=== PATIENT | female | born 1965 | race Caucasian/White ===

== ENCOUNTER → 2017-07-06 | Outpatient (CLI) | payer BC ==
[~2017-07-06] MED LIST: ASPEC325 PO; CNT PO
--- NOTE | 2017-07-06 15:19 | MAMMOGRAPHY REPORT ---
BILATERAL DIGITAL SCREENING MAMMOGRAM TOMOSYNTHESIS WITH CAD: 07/06/2017 CLINICAL HISTORY: Routine screening. Patient has no complaints. TECHNIQUE: Breast tomosynthesis in addition to standard 2D mammography was performed. Current study was also evaluated with a Computer Aided Detection (CAD) system. COMPARISON: Comparison is made to exams dated: 06/30/2016 mammogram, 06/26/2015 mammogram, 4 mammogram, 06/20/2013 mammogram, 05/30/2013 mammogram - [facility], and 09/04/2006. BREAST COMPOSITION: The tissue of both breasts is heterogeneously dense, which may obscure small mas ses. FINDINGS: There is a possible area of architectural distortion in the medial posterior right breast, only seen on the CC view (4.4 cm distal to the nipple on tomosynthesis slice 19/43), for which addit ional spot compression tomosynthesis views and possible ultrasound are recommended. There are stable punctate microcalcifications in both breasts. No other suspicious mass, architectur al distortion or cluster of microcalcifications is seen. IMPRESSION: ACR BI-RADS CATEGORY 0: INCOMPLETE EVALUATION: NEED ADDITIONAL IMAGING EVALUATION The possible area of architectural distortion in the medial right breast needs additional evaluation. The patient will be called to schedule an appointment. Approximately 10% of breast cancers are not detected with mammography. A negative mammographic report should not delay biopsy if a clinically suggestive mass is present. Alona Sawyer M.D. ay/:07/06/2017 08:37:26 Certified Phlebotomy Technician: Olena COOLEY(James)(Kaylee)(BD), [facility] letter sent: Addl Imaging 0 BI-RADS Code: ACR BI-RADS Category 0: Incomplete Evaluation: Need Additional Imaging Evaluation
== END | disposition home or self-care (01) ==
LOC: C.MAMM 08:06
PROVIDERS: ATTEND Family Medicine
DX: Z12.31 Encounter for screening mammogram for malignant neoplasm of breast (principal); R92.8 Other abnormal and inconclusive findings on diagnostic imaging of breast

== ENCOUNTER → 2017-07-13 | Outpatient (CLI) | payer BC ==
--- NOTE | 2017-07-14 07:48 | MAMMOGRAPHY REPORT ---
UNILATERAL RIGHT DIGITAL DIAGNOSTIC MAMMOGRAM TOMOSYNTHESIS AND TARGETED RIGHT ULTRASOUND: 07/13/2017 CLINICAL HISTORY: 52-year-old woman called back from screening mammography for a possible small subtl e area of architectural distortion in the medial right breast only seen on the CC view. No family hi story of breast cancer. TECHNIQUE: Spot compression CC and MLO 2-D and tomosynthesis images of the right breast were obtained . COMPARISON: Comparison is made to exams dated: 07/06/2017 mammogram, 06/30/2016 mammogram, 06/26/2015 mammogram, 06/22/2014 mammogram, 06/20/2013 mammogram, and 05/30/2013 mammogram - [facility]. BREAST COMPOSITION: The tissue of the right breast is extremely dense, which lowers the sensitivity of mammography. FINDINGS: There is complete effacement of the questionable area of architectural distortion in the me dial right breast on the spot compression right CC tomosynthesis images. No persistent area of archi tectural distortion is seen on either the CC or MLO spot compression tomosynthesis images. No suspic ious mass, asymmetry or suspicious calcifications. Targeted ultrasound was performed throughout the medial right breast to assess for the area of effaci ng asymmetry. Sonographically normal fibroglandular tissue is seen without a suspicious solid or cys tic mass or area of distortion seen in real-time scanning. IMPRESSION: ACR BI-RADS CATEGORY 2: BENIGN, TARGETED ULTRASOUND ACR BI-RADS CATEGORY 2: BENIGN Effacement of the questionable area of architectural distortion in the medial right breast with suppl emental spot compression tomosynthesis views, and no suspicious sonographic correlate identified. Th is most likely represented normal overlapping fibroglandular tissue. There is no mammographic or tar geted sonographic evidence of malignancy in the right breast. These results and recommendations were discussed with the patient and her at the time of the exam. Approximately 10% of breast cancers are not detected with mammography. A negative mammographic report should not delay biopsy if a clinically suggestive mass is present. Alona Sawyer M.D. ay/:07/13/2017 12:13:22 Conservation Educator: Bridgette RAWLS)(Kaylee), [facility] letter sent: Normal 1/2 BI-RADS Code: ACR BI-RADS Category 2: Benign Ultrasound BI-RADS: ACR BI-RADS Category 2: Benign
== END | disposition home or self-care (01) ==
LOC: C.MAMM 08:57
PROVIDERS: ATTEND Family Medicine
DX: R92.8 Other abnormal and inconclusive findings on diagnostic imaging of breast (principal); N64.89 Other specified disorders of breast

== ENCOUNTER 2022-02-02 07:16 | Inpatient (IN) ==
[2022-02-02] MEDS ORDERED: levETIRAcetam 1,000 MG in 0.9 % SODIUM CHLORIDE 100 ML IV STA (07:37)
[2022-02-02] MEDS ORDERED: SODIUM CHLORIDE 0.9% 1000ML 1,000 ML IV SCH (07:45)
--- NOTE | 2022-02-02 07:54 | Emergency Department Note ---
History of Present Illness General Chief complaint: Seizure Source: patient Mode of arrival: EMS Limitations: altered mental status History of Present Illness This patient is a 56-year-old female who presents to the emergency department via EMS for evaluation of a seizure. Patient postictal on arrival and unable to provide much history. states that she began feeling slightly ill 2 days ago, stating that she felt like there was a knot in her throat. Yesterday, she had some vomiting and a headache. He states that they assumed she was coming down with a virus. This morning, he watched her go to the bathroom and when she got up, she collapsed and had seizure-like activity which lasted approximately 10 minutes. Patient states that he was on the phone with 911 while this occurred. On EMS arrival, the seizure-like activity had stopped but she was confused. She has no history of seizures. He states otherwise she has not recently been ill. Patient was reassessed later in the stay and was able to provide some additional history. She denies any alcohol, drug or diuretic use. Home Medications Medication Instructions Recorded Confirmed Type Multivitamins/Minerals (Centrum *) 1 tab PO DAILY #0 07/27/11 02/02/22 History losartan 50 mg-hydrochlorothiazide 1 tab PO DAILY 02/02/22 02/02/22 History 12.5 mg tablet Allergies Allergy/AdvReac Type Severity Reaction Status Date / Time No Known Allergies Allergy Unverified 07/27/11 06:10 Past Med/Surg History Medical History HTN (hypertension), benign Surgical History No history of previous surgery Family History Father Diabetes Cancer Bladder CA Sister Cancer Pancreatic CA Sister Cancer Lung CA Social History Smoking Status: Never smoker Hx Alcohol Use: Yes Alcohol type: beer Alcohol Intake Frequency: 2-4 x/Month Alcohol Intake Frequency Comment: 2 beers Hx Substance Use: No Preferred Language: Arabic Communication Ability: Effective Etiologist Required: No Beliefs That Will Affect Care: None Current Living Situation: Spouse Current Living Situation Comment: no issues with ambulation, ADLs, falls, etc. Feels Safe at Home: Yes Assistive Devices: Glasses Review of Systems A total of 10 systems reviewed and were otherwise negative Physical Exam Vital Signs Vital Signs - 24 hr 02/02/22 08:30 02/02/22 09:05 02/02/22 09:30 Pulse Rate 75 77 69 Pulse Rate from SpO2 Sensor 75 77 69 Respiratory Rate 29 H 22 19 Blood Pressure 112/69 122/70 107/66 Blood Pressure Mean 83 87 79 Pulse Oximetry 95 96 95 02/02/22 10:00 Pulse Rate 72 Pulse Rate from SpO2 Sensor 73 Respiratory Rate 18 Blood Pressure 110/69 Blood Pressure Mean 82 Pulse Oximetry 96 VITALS: Vitals are noted on the nurse's note and reviewed by myself. GENERAL: This is a 56-year-old, disoriented. SKIN: The skin was without rashes. EARS: External auditory canals clear, tympanic membranes pearly miles without erythema or effusion bilaterally. EYES: Pupils equal round and reactive to light and accommodation. Extraocular movements intact. NOSE: Patent, turbinates without inflammation or discharge. MOUTH: Mucous membranes slightly dry. NECK: Supple without nuchal rigidity. No lymphadenopathy. HEART: Regular rate and rhythm without murmurs gallops or rubs. LUNGS: Clear to auscultation bilaterally without wheezes, rales or rhonchi. ABDOMEN: Positive bowel sounds x 4. Soft, nontender to palpation. MUSCULOSKELETAL: Full range of motion throughout. Strength 5/5 throughout. NEURO: Patient is alert but disoriented. She does follow commands. Course Administered Medications Enoxaparin Sodium (Enoxaparin Inj 40 Mg/0.4 Ml Syr) 40 mg SQ Q24H [facility] Stop: 03/04/22 12:59 Last Admin: 02/03/22 14:38 Dose: Not Given Documented by: [id number] Admin: 02/02/22 12:58 Dose: 40 mg Documented by: [id number] Discontinued Medications Gadobutrol (Gadobutrol 30ml Vial) 6 ml IV ONCE ONE Stop: 02/03/22 10:13 Last Admin: 02/03/22 10:12 Dose: 6 ml Documented by: [id number] Levetiracetam 1,000 mg/ Sodium (Chloride) 100 mls @ 440 mls/hr IV NOW STA Stop: 02/02/22 07:50 Last Infusion: 02/02/22 08:21 Dose: 0 mls/hr Documented by: [id number] Admin: 02/02/22 08:07 Dose: 440 mls/hr Documented by: [id number] Sodium Chloride (Nss 1000ml) 1,000 mls @ 999 mls/hr IV .Q1H1M SEAMUS Stop: 02/02/22 08:45 Last Infusion: 02/02/22 08:49 Dose: 0 mls/hr Documented by: [id number] Admin: 02/02/22 07:48 Dose: 999 mls/hr Documented by: [id number] Parenteral Electrolytes (Normosol-R) 1,000 mls @ 80 mls/hr IV .[id number] SEAMUS Stop: 02/03/22 01:59 Last Infusion: 02/02/22 19:08 Dose: 0 mls/hr Documented by: [id number] Admin: 02/02/22 14:47 Dose: 80 mls/hr Documented by: [id number] Desmopressin Acetate 0.5 mcg/ (Sodium Chloride) 50.125 mls @ 100 mls/hr IV ONCE ONE Stop: 02/02/22 19:33 Last Admin: 02/02/22 20:47 Dose: Not Given Documented by: [id number] Desmopressin Acetate 2 mcg/ (Sodium Chloride) 50.5 mls @ 100 mls/hr IV ONCE ONE Stop: 02/02/22 20:00 Last Infusion: 02/02/22 20:09 Dose: 0 mls/hr Documented by: [id number] Admin: 02/02/22 19:32 Dose: 100 mls/hr Documented by: [id number] Dextrose (D5w) 500 mls @ 999 mls/hr IV .Q31M ONE Stop: 02/03/22 04:50 Last Infusion: 02/03/22 05:29 Dose: 0 mls/hr Documented by: [id number] Admin: 02/03/22 04:58 Dose: 999 mls/hr Documented by: [id number] Potassium Phosphate 9 mmol/ (Sodium Chloride) 253 mls @ 88 mls/hr IV ONE ONE Stop: 02/03/22 09:37 Last Infusion: 02/03/22 10:41 Dose: 0 mls/hr Documented by: [id number] Admin: 02/03/22 07:44 Dose: 88 mls/hr Documented by: [id number] Desmopressin Acetate 1 mcg/ (Sodium Chloride) 50.25 mls @ 100 mls/hr IV ONE ONE Stop: 02/03/22 09:30 Last Infusion: 02/03/22 11:06 Dose: 0 mls/hr Documented by: [id number] Admin: 02/03/22 10:25 Dose: 100 mls/hr Documented by: [id number] Potassium Chloride (Potassium Chloride Crtab 20 Meq Tabcr) 20 meq PO NOW STA Stop: 02/02/22 18:50 Last Admin: 02/02/22 19:32 Dose: 20 meq Documented by: [id number] Medical Decision Making Differential Diagnosis Epilepsy, infection, hypoglycemia, electrolyte abnormalities, cardiac sources, intracerebral event, trauma, toxicologic, neurologic, syncope, as well as other pathologies. Home Medications Current Medication List: was personally reviewed by me Laboratory Data Attestation: I reviewed the patient's lab results. Result diagrams: 02/03/22 02:52 02/03/22 02:52 Lab Results 02/02/22 02/02/22 02/02/22 Range/Units 07:28 07:28 07:28 WBC 4.97 (4.8-10.8) K/uL RBC 3.85 L (4.2-5.4) M/uL Hgb 12.0 (12.0-16.0) g/dL Hct 33.7 L (37-47) % MCV 87.5 (80-100) fL MCH 31.2 (25-34) pg MCHC 35.6 (32-36) g/dL RDW Std Deviation 38.0 (36.4-46.3) fL RDW Coeff of Yolande 11.9 (11.5-14.5) % Plt Count 209 (130-400) K/uL MPV 9.6 (7.4-10.4) fL Immature Gran % (Auto) 0.2 % Neut % (Auto) 65.4 % Lymph % (Auto) 14.5 % Barnwell % (Auto) 19.9 % Eos % (Auto) 0.0 % Baso % (Auto) 0.0 % Neut # (Auto) 3.25 (1.4-6.5) K/uL Lymph # (Auto) 0.72 L (1.2-3.4) K/uL Barnwell # (Auto) 0.99 H (0.11-0.59) K/uL Eos # (Auto) 0.00 (0-0.5) K/uL Baso # (Auto) 0.00 (0-0.2) K/uL Immature Gran # (Auto) 0.01 (0.00-0.02) K/uL Sodium 118 L* (136-145) mmol/L Potassium 3.5 (3.5-5.1) mmol/L Chloride 83 L (98-107) mmol/L Carbon Dioxide 19 L (21-32) mmol/L Anion Gap 16 H (3-11) BUN 10 (6-23) mg/dl Creatinine 0.77 (0.6-1.2) mg/dl Est Cr Clr Drug Dosing 66.5 ml/min Est GFR ( Amer) 100.0 ml/min Est GFR (Non-Af Amer) 86.3 ml/min BUN/Creatinine Ratio 13.0 (10-20) Glucose 173 H (70-99(Fasting)) mg/dl Osmolality (280-300) mOsm/kg Calcium 8.7 (8.5-10.1) mg/dl Magnesium 1.7 (1.7-2.4) mg/dl Total Bilirubin 0.5 (0.2-1.0) mg/dl AST 64 H (13-39) U/L ALT 38 (7-52) U/L Alkaline Phosphatase 72 (34-104) U/L Total Protein 7.0 (6.0-8.3) gm/dl Albumin 4.3 (3.4-5.0) gm/dl Globulin 2.7 (2.5-4.0) gm/dl Albumin/Globulin Ratio 1.6 (0.9-2) TSH (0.300-4.500) uIu/ml Salicylates (3.0-30) mg/dl Ethyl Alcohol mg/dL < 10.0 (<10.0) mg/dl SARS-CoV-2, RNA, NAAT (NEGATIVE) 02/02/22 02/02/22 02/02/22 Range/Units 07:28 07:28 07:28 WBC (4.8-10.8) K/uL RBC (4.2-5.4) M/uL Hgb (12.0-16.0) g/dL Hct (37-47) % MCV (80-100) fL MCH (25-34) pg MCHC (32-36) g/dL RDW Std Deviation (36.4-46.3) fL RDW Coeff of Yolande (11.5-14.5) % Plt Count (130-400) K/uL MPV (7.4-10.4) fL Immature Gran % (Auto) % Neut % (Auto) % Lymph % (Auto) % Barnwell % (Auto) % Eos % (Auto) % Baso % (Auto) % Neut # (Auto) (1.4-6.5) K/uL Lymph # (Auto) (1.2-3.4) K/uL Barnwell # (Auto) (0.11-0.59) K/uL Eos # (Auto) (0-0.5) K/uL Baso # (Auto) (0-0.2) K/uL Immature Gran # (Auto) (0.00-0.02) K/uL Sodium (136-145) mmol/L Potassium (3.5-5.1) mmol/L Chloride (98-107) mmol/L Carbon Dioxide (21-32) mmol/L Anion Gap (3-11) BUN (6-23) mg/dl Creatinine (0.6-1.2) mg/dl Est Cr Clr Drug Dosing ml/min Est GFR ( Amer) ml/min Est GFR (Non-Af Amer) ml/min BUN/Creatinine Ratio (10-20) Glucose (70-99(Fasting)) mg/dl Osmolality 247 L (280-300) mOsm/kg Calcium (8.5-10.1) mg/dl Magnesium (1.7-2.4) mg/dl Total Bilirubin (0.2-1.0) mg/dl AST (13-39) U/L ALT (7-52) U/L Alkaline Phosphatase (34-104) U/L Total Protein (6.0-8.3) gm/dl Albumin (3.4-5.0) gm/dl Globulin (2.5-4.0) gm/dl Albumin/Globulin Ratio (0.9-2) TSH 0.706 (0.300-4.500) uIu/ml Salicylates < 3.0 L (3.0-30) mg/dl Ethyl Alcohol mg/dL (<10.0) mg/dl SARS-CoV-2, RNA, NAAT (NEGATIVE) 02/02/22 Range/Units 08:30 WBC (4.8-10.8) K/uL RBC (4.2-5.4) M/uL Hgb (12.0-16.0) g/dL Hct (37-47) % MCV (80-100) fL MCH (25-34) pg MCHC (32-36) g/dL RDW Std Deviation (36.4-46.3) fL RDW Coeff of Yolande (11.5-14.5) % Plt Count (130-400) K/uL MPV (7.4-10.4) fL Immature Gran % (Auto) % Neut % (Auto) % Lymph % (Auto) % Barnwell % (Auto) % Eos % (Auto) % Baso % (Auto) % Neut # (Auto) (1.4-6.5) K/uL Lymph # (Auto) (1.2-3.4) K/uL Barnwell # (Auto) (0.11-0.59) K/uL Eos # (Auto) (0-0.5) K/uL Baso # (Auto) (0-0.2) K/uL Immature Gran # (Auto) (0.00-0.02) K/uL Sodium (136-145) mmol/L Potassium (3.5-5.1) mmol/L Chloride (98-107) mmol/L Carbon Dioxide (21-32) mmol/L Anion Gap (3-11) BUN (6-23) mg/dl Creatinine (0.6-1.2) mg/dl Est Cr Clr Drug Dosing ml/min Est GFR ( Amer) ml/min Est GFR (Non-Af Amer) ml/min BUN/Creatinine Ratio (10-20) Glucose (70-99(Fasting)) mg/dl Osmolality (280-300) mOsm/kg Calcium (8.5-10.1) mg/dl Magnesium (1.7-2.4) mg/dl Total Bilirubin (0.2-1.0) mg/dl AST (13-39) U/L ALT (7-52) U/L Alkaline Phosphatase (34-104) U/L Total Protein (6.0-8.3) gm/dl Albumin (3.4-5.0) gm/dl Globulin (2.5-4.0) gm/dl Albumin/Globulin Ratio (0.9-2) TSH (0.300-4.500) uIu/ml Salicylates (3.0-30) mg/dl Ethyl Alcohol mg/dL (<10.0) mg/dl SARS-CoV-2, RNA, NAAT POSITIVE A* (NEGATIVE) Imaging Data Attestation: I personally reviewed and interpreted this imaging study as follows: Radiologist's Impression: Head CT 02/02/22 07:39 CT OF THE HEAD WITHOUT CONTRAST CLINICAL HISTORY: Headache, vomiting, new onset seizure. COMPARISON STUDY: No previous studies for comparison. CT DOSE: 614.27 mGy.cm TECHNIQUE: Helical axial images of the head were obtained without IV contrast. Automated exposure control was utilized for the study. A dose lowering technique was utilized adhering to the principles of ALARA. FINDINGS: No acute intracranial hemorrhage, midline shift or mass effect is present. The ventricular system is unremarkable. The basal cisterns are patent. No extra-axial collections are present. There are no findings to suggest acute dural sinus thrombosis or acute territorial infarct. No significant calvarial abnormalities are present. Visualized portions of the sinuses and mastoid air cells are clear. Small right scalp contusion is noted. There is no calvarial fracture IMPRESSION: 1. No acute intracranial hemorrhage or mass effect. 2. Small right scalp contusion. No calvarial fracture. ACT 112: Negative or not required by law. Electronically signed by: Korey Brown M.D. 02/02/2022 8:11 AM Chest X-Ray 02/02/22 07:41 XR chest 1V portable CLINICAL HISTORY: seizure TECHNIQUE: Single frontal radiograph of the chest was obtained. Comparison: None available at the time of this dictation. FINDINGS: No lines and tubes are seen. The cardiomediastinal silhouette is normal. The lungs are clear. Incidental note is made of a density in the left perihilar region which may represent a vessel seen on end versus calcified granuloma. No evidence of pleural effusion or pneumothorax. IMPRESSION: No acute chest disease. ACT 112: Negative or not required by law. Electronically signed by: Steven Morales M.D. 02/02/2022 8:18 AM MDM Narrative Continuous youth nutritional monitor: Order was placed for continuous youth nutritional monitor. Patient was placed on the youth nutritional monitor. Patient was noted to be in normal sinus rhythm at an initial rate of 60 bpm. The patient is a 56-year-old female with no significant past medical history who presents today for evaluation of a seizure. Patient has no history of seizure. Labs revealed a hyponatremia with sodium of 118. She was found to be COVID-19 positive. Patient hydrated with 1 L of normal saline here. She had been given a loading dose of Keppra on initial arrival prior to further work-up. CT imaging of the head was unremarkable. Patient and informed of the findings. Additional studies were ordered. [facility] patient for further care. Impression & Plan Seizure, COVID-19, Hyponatremia Discharge Plan Visit Data Chief Complaint: Seizure ED Provider: Kenia Martinez ED Midlevel Provider: Johana Rivero Discharge Problem: Seizure, COVID-19, Hyponatremia Patient Disposition: Admitted As Inpatient Discharge Instructions Interventions: ED Discharge Assessment Last Done: 02/02/22 10:00
[2022-02-02 07:59] LABS: Hematocrit (blood only) 33.7 % (37-47); Immature Granulocytes # (auto) 0.01 K/uL (0.00-0.02); Immature Granulocytes % (auto) 0.2 %; Lymphocytes # (auto) 0.72 K/uL (1.2-3.4); Lymphocytes % (auto) 14.5 %; Mean Corpuscular Hemoglobin 31.2 pg (25-34); Mean Corpuscular Hgb Conc 35.6 g/dL (32-36); Mean Corpuscular Volume 87.5 fL (80-100); Mean Platelet Volume 9.6 fL (7.4-10.4); Monocytes # (auto) 0.99 K/uL (0.11-0.59); Monocytes % (auto) 19.9 %; Neutrophils # (auto) 3.25 K/uL (1.4-6.5); Neutrophils % (auto) 65.4 %; Platelet Count 209 K/uL (130-400); RDW Coefficient of Variation 11.9 % (11.5-14.5); Red Blood Count 3.85 M/uL (4.2-5.4); White Blood Count 4.97 K/uL (4.8-10.8)
[2022-02-02 08:09] LABS: Albumin Globulin Ratio 1.6 (0.9-2); Albumin Level 4.3 gm/dl (3.4-5.0); Bilirubin,Total 0.5 mg/dl (0.2-1.0); Calcium 8.7 mg/dl (8.5-10.1); Creatinine Clr Calc Pharmacy 66.5 ml/min; Est GFR (Non-African American) 86.3 ml/min; Globulin 2.7 gm/dl (2.5-4.0); Magnesium 1.7 mg/dl (1.7-2.4); Potassium 3.5 mmol/L (3.5-5.1)
--- NOTE | 2022-02-02 08:12 | CT Scan Report ---
CT OF THE HEAD WITHOUT CONTRAST CLINICAL HISTORY: Headache, vomiting, new onset seizure. COMPARISON STUDY: No previous studies for comparison. CT DOSE: 614.27 mGy.cm TECHNIQUE: Helical axial images of the head were obtained without IV contrast. Automated exposure con trol was utilized for the study. A dose lowering technique was utilized adhering to the principles o f ALARA. FINDINGS: No acute intracranial hemorrhage, midline shift or mass effect is present. The ventricular system is unremarkable. The basal cisterns are patent. No extra-axial collections are present. There are no findings to suggest acute dural sinus thrombosis or acute territorial infarct. No significant calvarial abnormalities are present. Visualized portions of the sinuses and mastoid air cells are ishmael ar. Small right scalp contusion is noted. There is no calvarial fracture IMPRESSION: 1. No acute intracranial hemorrhage or mass effect. 2. Small right scalp contusion. No calvarial fracture. ACT 112: Negative or not required by law. Electronically signed by: Korey Brown M.D. 02/02/2022 8:11 AM
--- NOTE | 2022-02-02 08:19 | XRay Report ---
XR chest 1V portable CLINICAL HISTORY: seizure TECHNIQUE: Single frontal radiograph of the chest was obtained. Comparison: None available at the time of this dictation. FINDINGS: No lines and tubes are seen. The cardiomediastinal silhouette is normal. The lungs are clear. Inciden hernan note is made of a density in the left perihilar region which may represent a vessel seen on end v ersus calcified granuloma. No evidence of pleural effusion or pneumothorax. IMPRESSION: No acute chest disease. ACT 112: Negative or not required by law. Electronically signed by: Steven Morales M.D. 02/02/2022 8:18 AM
--- NOTE | 2022-02-02 10:20 | History & Physical Report ---
Date of Service February 02, 2022 Assessment & Plan (1) Hyponatremia: Plan: Presented with headache followed by seizure. Almost certainly this is secondary to severe hyponatremia in the setting of nausea/vomiting/diarrhea and COVID-19. Seizure lasting 10 to 12 minutes as per 's estimate and was generalized, tonic-clonic in nature. Sodium 118 on arrival with serum osmolality 247. Urine studies were not obtained until after she received 1 L of normal saline-urine osmolality 462, urine sodium 44, however the urine sodium could be affected by the normal saline she received as well as the HCTZ that she is on chronically. She has 2+ ketones in the urine She is clearly hypovolemic with her history of nausea/vomiting/diarrhea and very poor p.o. intake, making this hypotonic hypovolemic hyponatremia. There could be some part SIADH however. High anion gap metabolic acidosis likely secondary to elevated lactate from seizure, however lactate was not checked in ER -Given severe hyponatremia with resultant seizure, admit to ICU for close monitoring -Appreciate repairer welding systems and equipment consultation -Will check BMP again now and determine whether or not to give hypertonic saline versus isotonic after that -Most likely acute hyponatremia-aim for goal of increasing sodium 8 mmol/liter in the first 24 hours -Hold home HCTZ/losartan, and avoid NSAIDs and other medications that can cause low sodium -Treat nausea with antiemetics as needed -Follow BMP every 4 hours -Plan to get MRI of the brain with contrast on Thursday to rule out intracranial lesion-discussed with patient and (2) Seizure: Plan: Most likely secondary to severe hyponatremia CT head negative Treating hyponatremia as above Check brain MRI with contrast once sodium improves-ordered for Thursday No need for EEG IV Ativan as needed No need for further Keppra (3) Nausea vomiting and diarrhea: Plan: Secondary to COVID-19 Antiemetics as needed Clear liquids diet for now (4) COVID-19: Plan: Diagnosed on 02/02. Symptoms for started on 01/31 She is twice vaccinated and boosted No evidence of hypoxia or pneumonia on chest x-ray-no indication for dexamethasone AST somewhat elevated at 64. Also with absolute lymphopenia Could give Remdesivir but will hold off given electrolyte abnormalities and dehydration Follow clinically Acetaminophen as needed for headache Place on airborne/contact isolation precautions (5) HTN (hypertension), benign: Plan: Blood pressures here are normal Hold home losartan/HCTZ due to hyponatremia Follow blood pressures Plan: DVT prophylaxis-Lovenox SQ, SCDs Disposition-admit to ICU Full code History of Present Illness Chief Complaint: Seizure Primary Care Provider: Olena Benson MD This patient is a 56-year-old female with a history of HTN who presents to the ER after her witnessed her having a generalized tonic-clonic seizure that lasted about 10-12 minutes this morning. Her provides the majority of the history as patient was still a bit post-ictal when I saw her. She started having a sore throat 2 days ago, then yesterday had a headache, chills, and was vomiting all day long, nonbloody. Had a couple episodes of diarrhea as well. She was able to drink small amounts of water but nothing stayed down all day. She got up to go to the bathroom this morning and after she urinated, her reports she stood up and then fell down to the ground and had shaking movements all over that lasted 10 to 12 minutes. He called for an ambulance and when they got there the seizing had stopped. In the ER, she was found to be positive for COVID-19, had a sodium of 118, metabolic acidosis with a serum bicarbonate of 19, AG of 16, serum osmoloality of 247. Her AST was mildly elevated at 64. CBC was unremarkable except for an absolute lymphopenia. She was afebrile and vitals were normal otherwise. A head CT noncontrast was negative except for a small right scalp contusion and a chest x-ray was normal. She was given 1 L normal saline and 1000 g of IV Keppra. She is twice vaccinated and boosted for COVID-19. She will be admitted to the ICU for severe hyponatremia with seizure, and COVID- 19. Allergies Allergy/AdvReac Type Severity Reaction Status Date / Time No Known Allergies Allergy Unverified 07/27/11 06:10 Home Medications Medication Instructions Recorded Confirmed Type Multivitamins/Minerals (Centrum *) 1 tab PO DAILY #0 07/27/11 02/02/22 History losartan 50 mg-hydrochlorothiazide 1 tab PO DAILY 02/02/22 02/02/22 History 12.5 mg tablet Past Med/Surg History Medical History HTN (hypertension), benign Surgical History No history of previous surgery Family History Father Diabetes Cancer Bladder CA Sister Cancer Pancreatic CA Sister Cancer Lung CA Social History Smoking Status: Never smoker Hx Alcohol Use: Yes Alcohol type: beer Alcohol Intake Frequency: 2-4 x/Month Alcohol Intake Frequency Comment: 2 beers Hx Substance Use: No Preferred Language: Beninese Communication Ability: Effective [place] Decorator Required: No Beliefs That Will Affect Care: None Current Living Situation: Spouse Current Living Situation Comment: no issues with ambulation, ADLs, falls, etc. Feels Safe at Home: Yes Assistive Devices: Glasses Review of Systems Review of Systems: All systems reviewed & are unremarkable except as noted in HPI & below Currently still with mild headache and nausea, no lightheadedness. No changes in vision. Chills but no documented fevers at home. No numbness or tingling, no focal weakness. No blood in stool or vomit Feels like she has to urinate but cannot get it out. No abdominal pains No chest pain or shortness of breath, no cough No skin rashes Physical Exam Constitutional: WD/WN, vitals as above Eyes: PERRL, conjunctivae normal, anicteric sclerae EOM intact bilaterally; no anisocoria and no nystagmus ENMT: external ear and nose normal, oropharynx normal Neck: trachea midline, no thyromegaly Respiratory: normal respiratory effort, lungs clear to auscultation Cardiovascular: RRR, no murmur, no edema Chest (Breasts): Chest: normal inspection of chest Gastrointestinal (Abdomen): normal bowel sounds, soft, nontender, no hepatosplenomegaly Musculoskeletal: Extremities: extremities normal to inspection; no cyanosis and no clubbing Skin: no rashes, warm and dry Neurologic: PERRL, EOMI, accommodation nl, no face palsy, no dysarthria CN's II-XI intact bilaterally, moves all extremities and awake; no focal motor deficits, no meningeal signs and not confused Speech / Cognition: no expressive aphasia Motor/Sensory: no sensory deficit Psychiatric: A+Ox3, euthymic affect Lymphatic: no lymphedema Results & Data Results & Data ([facility]) Vital Signs (Past 12 Hours) Vital Signs Temp Pulse Resp BP Pulse Ox 02/02/22 09:05 77 22 122/70 96 02/02/22 08:30 75 29 H 112/69 95 02/02/22 08:08 76 27 H 108/69 97 02/02/22 07:40 68 16 95/47 L 93 02/02/22 07:39 73 20 94 02/02/22 07:30 37.0 C 72 20 112/69 94 Laboratory Results Labs reviewed Diagnostic Findings Imaging reviewed ECG Additional Comments: ECG on 02/02/2022 at 7:25 AM with normal sinus rhythm, rate 74, voltage criteria for LVH, no ischemic changes Code Status & VTE Plan Code Status Full code VTE Prophylaxis Plan VTE Prophylaxis will be ordered: Yes PG Care Time/CCT Total # of Minutes Spent Total Time Spent with Patient: Total time spent is greater than 50% in coordination of care (as documented) at patient's floor/unit and/or counseling patient: Coding Level of Care Code 54466 Initial Inpt Care Lvl 3 Diagnoses HTN (hypertension), benign I10 COVID-19 U07.1 Nausea vomiting and diarrhea R11.2; R19.7 Hyponatremia E87.1 Seizure R56.9
[2022-02-02 10:51] LABS: Appearance Urine Clear (Clear); Bilirubin Urine Negative (Negative); Blood Urine Negative (Negative); Color Urine Yellow; Glucose Urine UA Trace (Negative); Ketones Urine 2+ (Negative); Leukocyte Esterase Urine Negative (Negative); Nitrite Urine Negative (Negative); Protein Urine Negative (Negative); Specific Gravity Urine 1.016 (1.000-1.030); Urobilinogen Urine Negative (Negative); pH Urine 6.5 (4.5-7.5)
[2022-02-02 11:20] LABS: Amphetamines+Metham, Urine Neg (Neg); Barbiturates, Urine Neg (Neg); Benzodiazepine, Urine Neg (Neg); Cocaine, Urine Neg (Neg); MDMA (Ecstacy), Urine Neg (Neg); Methadone, Urine Neg (Neg); Opiate, Urine Neg (Neg); Phencyclidine, Urine Neg (Neg)
--- NOTE | 2022-02-02 11:25 | Critical Care Consultation ---
Date of Consultation February 02, 2022 Assessment & Plan (1) Dehydration with hyponatremia: Reason Critically Ill: Seizure-like activity with acute hyponatremia secondary to diarrhea PLAN: Neuro: Seizure-like activity - Keppra started in ED, no indication to continue at this time Resp: COVID-19 -Largely asymptomatic, suspect diarrhea secondary to viral syndrome CV: Hypertension -Hold ARB/hydrochlorothiazide antihypertensive Fluids/Renal: Acute hyponatremia -Trend BMP every 6x4 with Normosol infusion at 80 mL/h ID: COVID-19 infection -Symptomatic treatment GI/Nutrition: Acute diarrhea: Suspect viral in etiology Heme: DVT prophylaxis: Lovenox 40 mg daily Endocrine: ICU hyperglycemia protocol Vascular access: Peripheral IVs Code Status: Full code Disposition: ICU (2) Seizure-like activity: (3) Acute diarrhea: (4) COVID-19: Supervising Physician Co-Signing Physician Notes I have personally spent 35 minutes of critical care time in the direct managemen t of this patient. This is a life/limb threatening event. This includes time spent evaluating patient, direct bedside care, chart review, placing orders, interpretation of diagnostic studies, discussion with consultants, patient, and/or family members regarding treatment decisions, as well as other required patient management activities. This time is exclusive of all separately billable procedures, and teaching time and separate from and in addition to any other critical care service time. History of Present Illness Reason for Consultation: Seizure: Symptomatic hypovolemic hyponatremia Requesting Physician: Shelby De La O Attending Physician: Shelby De La O History of Present Illness 56-year-old female who has had diarrhea and poor p.o. intake since approximately Thursday. Per report the patient had approximately 10 to 15 minutes of tonic- clonic shaking which the called EMS and this finished spontaneously when EMS arrived. In the emergency department she was given 1 L normal saline. She was incidentally found to be COVID-positive. She admitted to the ICU for trending of her sodiums and further management as well as isolation. Allergies Allergy/AdvReac Type Severity Reaction Status Date / Time No Known Allergies Allergy Unverified 07/27/11 06:10 Home Medications Medication Instructions Recorded Confirmed Type Multivitamins/Minerals (Centrum *) 1 tab PO DAILY #0 07/27/11 02/02/22 History losartan 50 mg-hydrochlorothiazide 1 tab PO DAILY 02/02/22 02/02/22 History 12.5 mg tablet Patient History Social History Smoking Status: Former smoker Hx Alcohol Use: Yes Alcohol type: beer Hx Substance Use: No Preferred Language: Thai Communication Ability: Effective Administrative Job Titles Required: No Beliefs That Will Affect Care: None Current Living Situation: Spouse Current Living Situation Comment: no issues with ambulation, ADLs, falls, etc. Feels Safe at Home: Yes Safety Concerns: Feels Safe At This Time Assistive Devices: Glasses Physical Exam Physical Exam: General: Alert. nontoxic. Skin: Warm, dry, Head: Atraumatic Ears, nose, mouth and throat: airway patent Cardiovascular: Normal peripheral perfusion Respiratory: no respiratory distress Gastrointestinal: Non distended Musculoskeletal: No deformity Results & Data Results & Data ([facility]) Vital Signs (Past 12 Hours) Vital Signs Temp Pulse Resp BP Pulse Ox 02/02/22 10:30 71 20 120/67 96 02/02/22 10:00 72 18 110/69 96 02/02/22 09:30 69 19 107/66 95 02/02/22 09:05 77 22 122/70 96 02/02/22 08:30 75 29 H 112/69 95 02/02/22 08:08 76 27 H 108/69 97 02/02/22 07:40 68 16 95/47 L 93 02/02/22 07:39 73 20 94 02/02/22 07:30 37.0 C 72 20 112/69 94 Critical Care Results & Data Vital Signs (Past 12 Hours) Vital Signs Temp Pulse Pulse Resp BP BP Pulse Ox 02/02/22 11:35 36.9 C 68 18 111/65 96 02/02/22 10:30 71 20 120/67 96 02/02/22 10:00 72 18 110/69 96 02/02/22 09:30 69 19 107/66 95 02/02/22 09:05 77 22 122/70 96 02/02/22 08:30 75 29 H 112/69 95 02/02/22 08:08 76 27 H 108/69 97 02/02/22 07:40 68 16 95/47 L 93 02/02/22 07:39 73 20 94 02/02/22 07:30 37.0 C 72 20 112/69 94 Lab & Micro Results (Past 24 Hours) RBC 3.85 M/uL (4.2-5.4) L 02/02/22 WBC 4.97 K/uL (4.8-10.8) 02/02/22 Hgb 12.0 g/dL (12.0-16.0) 02/02/22 Hct 33.7 % (37-47) L 02/02/22 MCV 87.5 fL (80-100) 02/02/22 MCH 31.2 pg (25-34) 02/02/22 MCHC 35.6 g/dL (32-36) 02/02/22 RDW Standard Deviation 38.0 fL (36.4-46.3) 02/02/22 RDW Coefficient of Variation 11.9 % (11.5-14.5) 02/02/22 Plt Count 209 K/uL (130-400) 02/02/22 MPV 9.6 fL (7.4-10.4) 02/02/22 Neutrophils (%) (Auto) 65.4 % 02/02/22 Lymphocytes (%) (Auto) 14.5 % 02/02/22 Monocytes # (Auto) 0.99 K/uL (0.11-0.59) H 02/02/22 Eosinophils # (Auto) 0.00 K/uL (0-0.5) 02/02/22 Immature Granulocyte % (Auto) 0.2 % 02/02/22 Neutrophils # (Auto) 3.25 K/uL (1.4-6.5) 02/02/22 Lymphocytes # (Auto) 0.72 K/uL (1.2-3.4) L 02/02/22 Monocytes # (Auto) 0.99 K/uL (0.11-0.59) H 02/02/22 Eosinophils # (Auto) 0.00 K/uL (0-0.5) 02/02/22 Basophils # (Auto) 0.00 K/uL (0-0.2) 02/02/22 Immature Granulocyte # (Auto) 0.01 K/uL (0.00-0.02) 02/02/22 Na 121 mmol/L (136-145) L 02/02/22 K 3.6 mmol/L (3.5-5.1) 02/02/22 Cl 88 mmol/L (98-107) L 02/02/22 CO2 26 mmol/L (21-32) 02/02/22 Anion Gap 7 (3-11) 02/02/22 BUN 9 mg/dl (6-23) 02/02/22 Creatinine 0.60 mg/dl (0.6-1.2) 02/02/22 Estimated GFR ( Amer) 118.1 ml/min 02/02/22 Estimated GFR (Non-Af Amer) 101.9 ml/min 02/02/22 BUN/Creatinine Ratio 15.0 (10-20) 02/02/22 Glu 102 mg/dl (70-99(Fasting)) H 02/02/22 Ca 8.1 mg/dl (8.5-10.1) L 02/02/22 Total Bilirubin 0.5 mg/dl (0.2-1.0) 02/02/22 AST 64 U/L (13-39) H 02/02/22 ALT 38 U/L (7-52) 02/02/22 Alkaline Phosphatase 72 U/L (34-104) 02/02/22 TP 7.0 gm/dl (6.0-8.3) 02/02/22 Albumin 4.3 gm/dl (3.4-5.0) 02/02/22 Globulin 2.7 gm/dl (2.5-4.0) 02/02/22 Albumin/Globulin Ratio 1.6 (0.9-2) 02/02/22 Mg 1.7 mg/dl (1.7-2.4) 02/02/22 07:28 02/02/22 Calcium Level 8.1 mg/dl (8.5-10.1) L 02/02/22 12:16 02/02/22 Diagnostic Findings (Past 24 Hours) Head CT 02/02/22 07:39 CT OF THE HEAD WITHOUT CONTRAST CLINICAL HISTORY: Headache, vomiting, new onset seizure. COMPARISON STUDY: No previous studies for comparison. CT DOSE: 614.27 mGy.cm TECHNIQUE: Helical axial images of the head were obtained without IV contrast. Automated exposure control was utilized for the study. A dose lowering technique was utilized adhering to the principles of ALARA. FINDINGS: No acute intracranial hemorrhage, midline shift or mass effect is present. The ventricular system is unremarkable. The basal cisterns are patent. No extra-axial collections are present. There are no findings to suggest acute dural sinus thrombosis or acute territorial infarct. No significant calvarial abnormalities are present. Visualized portions of the sinuses and mastoid air cells are clear. Small right scalp contusion is noted. There is no calvarial fracture IMPRESSION: 1. No acute intracranial hemorrhage or mass effect. 2. Small right scalp contusion. No calvarial fracture. ACT 112: Negative or not required by law. Electronically signed by: Korey Brown M.D. 02/02/2022 8:11 AM Chest X-Ray 02/02/22 07:41 XR chest 1V portable CLINICAL HISTORY: seizure TECHNIQUE: Single frontal radiograph of the chest was obtained. Comparison: None available at the time of this dictation. FINDINGS: No lines and tubes are seen. The cardiomediastinal silhouette is normal. The lungs are clear. Incidental note is made of a density in the left perihilar region which may represent a vessel seen on end versus calcified granuloma. No evidence of pleural effusion or pneumothorax. IMPRESSION: No acute chest disease. ACT 112: Negative or not required by law. Electronically signed by: Steven Morales M.D. 02/02/2022 8:18 AM I & O Totals 24 Hours 02/01/22 02/02/22 02/03/22 06:59 06:59 06:59 Intake Total 1100 / 1100 Balance 1100 / 1100 Cumulative 02/02/22 07:10 thru 02/02/22 11:35 Intake Total 1100 Balance 1100 RT Ventilator Mngmt (Last Documented) Ventilator Ordered Settings Respiratory Rate 18 02/02/22 11:35 Ventilator - PT Measurements Respiratory Rate 18 Coding Level of Care Code Critical Care 1st 30-74 mins Diagnoses Seizure-like activity R56.9 Dehydration with hyponatremia E86.0; E87.1 Acute diarrhea R19.7 COVID-19 U07.1
[2022-02-02] MEDS ORDERED: LORazepam 2 MG in SYRINGE 1 ML IV PRN (11:54)
[2022-02-02] MEDS ORDERED: ICU PROTOCOL FOR HYPERGLYCEMIA PRN (11:54)
[2022-02-02] MEDS ORDERED: ONDANSETRON INJ 2 MG/ML 2 ML VIAL IV PRN (11:54)
[2022-02-02] MEDS ORDERED: ACETAMINOPHEN 325 MG TAB PO PRN (11:54)
[2022-02-02 12:57] LABS: Calcium 8.1 mg/dl (8.5-10.1); Creatinine Clr Calc Pharmacy 85.7 ml/min; Est GFR (African American) 118.1 ml/min; Est GFR (Non-African American) 101.9 ml/min; Potassium 3.6 mmol/L (3.5-5.1)
[2022-02-02] MEDS: ENOXAPARIN INJ 40 MG/0.4 ML SYR SQ SCH (12:58)
[2022-02-02] MEDS ORDERED: NORMOSOL-R 1,000 ML IV SCH (13:30)
[2022-02-02 18:19] LABS: BUN Creatinine Ratio 12.9 (10-20); Calcium 8.4 mg/dl (8.5-10.1); Est GFR (African American) 116.8 ml/min; Est GFR (Non-African American) 100.8 ml/min; Potassium 3.4 mmol/L (3.5-5.1)
[2022-02-02] MEDS ORDERED: POTASSIUM CHLORIDE CRTAB 20 MEQ TABCR PO STA (18:49)
[2022-02-02] MEDS ORDERED: DESMOPRESSIN ACETATE 0.5 MCG in SODIUM CHLORIDE 0.9% 50 ML IV ONE (19:03)
[2022-02-02] MEDS ORDERED: DESMOPRESSIN ACETATE 2 MCG in SODIUM CHLORIDE 0.9% 50 ML IV ONE (19:30)
[2022-02-03 03:24] LABS: Albumin Level 3.7 gm/dl (3.4-5.0); BUN Creatinine Ratio 16.1 (10-20); Bilirubin,Total 0.3 mg/dl (0.2-1.0); C Reactive Protein 1.5 mg/dl (0-0.5); Calcium 8.3 mg/dl (8.5-10.1); Est GFR (African American) 116.8 ml/min; Est GFR (Non-African American) 100.8 ml/min; Phosphorus 1.9 mg/dl (2.5-4.9); Potassium 3.9 mmol/L (3.5-5.1)
[2022-02-03 03:25] LABS: Hematocrit (blood only) 31.3 % (37-47); Hemoglobin 11.1 g/dL (12.0-16.0); Lymphocytes # (auto) 1.06 K/uL (1.2-3.4); Lymphocytes % (auto) 28.5 %; Mean Corpuscular Hemoglobin 31.4 pg (25-34); Mean Corpuscular Hgb Conc 35.5 g/dL (32-36); Mean Corpuscular Volume 88.4 fL (80-100); Mean Platelet Volume 9.3 fL (7.4-10.4); Monocytes # (auto) 0.72 K/uL (0.11-0.59); Monocytes % (auto) 19.4 %; Neutrophils # (auto) 1.94 K/uL (1.4-6.5); Neutrophils % (auto) 52.1 %; Platelet Count 201 K/uL (130-400); RDW Standard Deviation 39.2 fL (36.4-46.3); Red Blood Count 3.54 M/uL (4.2-5.4); White Blood Count 3.72 K/uL (4.8-10.8)
[2022-02-03] MEDS ORDERED: DEXTROSE 5% 500 ML IV ONE (04:20)
[2022-02-03] MEDS ORDERED: POTASSIUM PHOS 3 MMOL/1 ML INFUSION IV STA (06:26)
[2022-02-03] MEDS ORDERED: POTASSIUM PHOSPHATE 9 MMOL in SODIUM CHLORIDE 0.9% 250 ML IV ONE (06:45)
--- NOTE | 2022-02-03 07:34 | Critical Care Progress Note ---
Date of Service February 03, 2022 Assessment & Plan (1) Seizure: (2) Hyponatremia: (3) COVID-19: Plan: Impression: 56-year-old female with COVID and likely associated viral gastroenteritis resulting in hypovolemic hyponatremia and associated questionable seizure activity. Her sodium is correcting appropriately and she is asymptomatic. Recommendations: 1. Hypovolemic hyponatremia: Appears correcting appropriately. Continue to monitor sodium levels. 2. Seizure-like activity: Unclear if this represents actual seizure or not. No persistent neurological findings. Imaging results unremarkable. No indication for antiepileptic agents currently. 3. COVID-19 infection: Suspect this was the etiology of the patient's GI complaints. She is devoid of any other symptoms. No indication for additional therapies or work-up at this point time. Continue to follow clinically. 4. Continue electrolyte replacement protocols. 5. The patient appears stable at this point time to dismiss from the intensive care unit. Will contact hospitalist to assume care patient and write transfer orders. Critical care services will sign off. Feel free to contact us if we can be of additional assistance. Admission and Anticipated Discharge Date Admission Date: February 02, 2022 Subjective Patient seen and examined. EMR reviewed. Discussed with overnight critical care CODY and bedside nurse. The patient is without complaints this morning. She reports that she is feeling well. She denies any neurological complaints. No headache double vision nausea or vomiting. Her appetite is returning. She is been out of bed to the commode and was steady on her feet. Review of Systems Review of Systems: All systems reviewed & are unremarkable except as noted in Subjective Physical Exam Constitutional: WD/WN, vitals as above Neck: trachea midline, no thyromegaly Respiratory: normal respiratory effort, lungs clear to auscultation Cardiovascular: RRR, no murmur, no edema Gastrointestinal (Abdomen): normal bowel sounds, soft, nontender, no hepatosplenomegaly Musculoskeletal: Extremities: extremities normal to inspection Skin: no rashes, warm and dry Neurologic: Nonfocal exam Lymphatic: no cervical lymphadenopathy Results & Data Results & Data ([facility]) Vital Signs (Past 12 Hours) Vital Signs Temp Pulse Resp BP Pulse Ox 02/03/22 06:55 56 L 16 103/57 L 96 02/03/22 06:25 56 L 14 100/61 95 02/03/22 05:55 58 L 7 L 94/52 L 96 02/03/22 05:25 73 15 109/56 L 96 02/03/22 04:55 56 L 27 H 111/53 L 94 02/03/22 04:25 63 19 83/44 L 95 02/03/22 03:55 37.9 C H 68 9 L 100/48 L 96 02/03/22 03:25 60 9 L 98/49 L 96 02/03/22 02:55 66 16 103/56 L 96 02/03/22 02:25 73 15 112/61 96 02/03/22 01:55 66 14 106/59 L 96 02/03/22 01:25 59 L 16 87/55 L 96 02/03/22 00:55 55 L 20 104/53 L 98 02/03/22 00:25 63 7 L 94/48 L 96 02/03/22 00:00 58 L 02/02/22 23:55 58 L 9 L 89/48 L 96 02/02/22 23:25 57 L 0 L 119/60 95 02/02/22 22:55 63 0 L 111/67 96 02/02/22 22:25 77 17 111/63 97 02/02/22 21:55 60 16 119/66 96 02/02/22 21:25 62 22 99/67 L 96 02/02/22 20:55 63 14 110/66 98 02/02/22 20:25 64 17 101/56 L 100 02/02/22 19:55 36.8 C 63 13 98/59 L 99 Critical Care Results & Data Vital Signs (Past 12 Hours) Vital Signs Temp Pulse Resp BP Pulse Ox 02/03/22 06:55 56 L 16 103/57 L 96 02/03/22 06:25 56 L 14 100/61 95 02/03/22 05:55 58 L 7 L 94/52 L 96 02/03/22 05:25 73 15 109/56 L 96 02/03/22 04:55 56 L 27 H 111/53 L 94 02/03/22 04:25 63 19 83/44 L 95 02/03/22 03:55 37.9 C H 68 9 L 100/48 L 96 02/03/22 03:25 60 9 L 98/49 L 96 02/03/22 02:55 66 16 103/56 L 96 02/03/22 02:25 73 15 112/61 96 02/03/22 01:55 66 14 106/59 L 96 02/03/22 01:25 59 L 16 87/55 L 96 02/03/22 00:55 55 L 20 104/53 L 98 02/03/22 00:25 63 7 L 94/48 L 96 02/03/22 00:00 58 L 02/02/22 23:55 58 L 9 L 89/48 L 96 02/02/22 23:25 57 L 0 L 119/60 95 02/02/22 22:55 63 0 L 111/67 96 02/02/22 22:25 77 17 111/63 97 02/02/22 21:55 60 16 119/66 96 02/02/22 21:25 62 22 99/67 L 96 02/02/22 20:55 63 14 110/66 98 02/02/22 20:25 64 17 101/56 L 100 02/02/22 19:55 36.8 C 63 13 98/59 L 99 Lab & Micro Results (Past 24 Hours) RBC 3.54 M/uL (4.2-5.4) L 02/03/22 WBC 3.72 K/uL (4.8-10.8) L 02/03/22 Hgb 11.1 g/dL (12.0-16.0) L 02/03/22 Hct 31.3 % (37-47) L 02/03/22 MCV 88.4 fL (80-100) 02/03/22 MCH 31.4 pg (25-34) 02/03/22 MCHC 35.5 g/dL (32-36) 02/03/22 RDW Standard Deviation 39.2 fL (36.4-46.3) 02/03/22 RDW Coefficient of Variation 12.0 % (11.5-14.5) 02/03/22 Plt Count 201 K/uL (130-400) 02/03/22 MPV 9.3 fL (7.4-10.4) 02/03/22 Neutrophils (%) (Auto) 52.1 % 02/03/22 Lymphocytes (%) (Auto) 28.5 % 02/03/22 Monocytes # (Auto) 0.72 K/uL (0.11-0.59) H 02/03/22 Eosinophils # (Auto) 0.00 K/uL (0-0.5) 02/03/22 Immature Granulocyte % (Auto) 0.0 % 02/03/22 Neutrophils # (Auto) 1.94 K/uL (1.4-6.5) 02/03/22 Lymphocytes # (Auto) 1.06 K/uL (1.2-3.4) L 02/03/22 Monocytes # (Auto) 0.72 K/uL (0.11-0.59) H 02/03/22 Eosinophils # (Auto) 0.00 K/uL (0-0.5) 02/03/22 Basophils # (Auto) 0.00 K/uL (0-0.2) 02/03/22 Immature Granulocyte # (Auto) 0.00 K/uL (0.00-0.02) 02/03/22 Na 131 mmol/L (136-145) L 02/03/22 K 3.9 mmol/L (3.5-5.1) 02/03/22 Cl 98 mmol/L (98-107) 02/03/22 CO2 28 mmol/L (21-32) 02/03/22 Anion Gap 5 (3-11) 02/03/22 BUN 10 mg/dl (6-23) 02/03/22 Creatinine 0.62 mg/dl (0.6-1.2) 02/03/22 Estimated GFR ( Amer) 116.8 ml/min 02/03/22 Estimated GFR (Non-Af Amer) 100.8 ml/min 02/03/22 BUN/Creatinine Ratio 16.1 (10-20) 02/03/22 Glu 92 mg/dl (70-99(Fasting)) 02/03/22 Ca 8.3 mg/dl (8.5-10.1) L 02/03/22 Phosphorus Level 1.9 mg/dl (2.5-4.9) L 02/03/22 Total Bilirubin 0.3 mg/dl (0.2-1.0) 02/03/22 Direct Bilirubin 0.0 mg/dl (0-0.2) 02/03/22 AST 42 U/L (13-39) H 02/03/22 ALT 34 U/L (7-52) 02/03/22 Alkaline Phosphatase 54 U/L (34-104) 02/03/22 TP 6.0 gm/dl (6.0-8.3) 02/03/22 Albumin 3.7 gm/dl (3.4-5.0) 02/03/22 Mg 2.0 mg/dl (1.7-2.4) 02/03/22 02:52 02/03/22 Calcium Level 8.3 mg/dl (8.5-10.1) L 02/03/22 02:52 02/03/22 Diagnostic Findings (Past 24 Hours) Head CT 02/02/22 07:39 CT OF THE HEAD WITHOUT CONTRAST CLINICAL HISTORY: Headache, vomiting, new onset seizure. COMPARISON STUDY: No previous studies for comparison. CT DOSE: 614.27 mGy.cm TECHNIQUE: Helical axial images of the head were obtained without IV contrast. Automated exposure control was utilized for the study. A dose lowering technique was utilized adhering to the principles of ALARA. FINDINGS: No acute intracranial hemorrhage, midline shift or mass effect is present. The ventricular system is unremarkable. The basal cisterns are patent. No extra-axial collections are present. There are no findings to suggest acute dural sinus thrombosis or acute territorial infarct. No significant calvarial abnormalities are present. Visualized portions of the sinuses and mastoid air cells are clear. Small right scalp contusion is noted. There is no calvarial fracture IMPRESSION: 1. No acute intracranial hemorrhage or mass effect. 2. Small right scalp contusion. No calvarial fracture. ACT 112: Negative or not required by law. Electronically signed by: Korey Brown M.D. 02/02/2022 8:11 AM Chest X-Ray 02/02/22 07:41 XR chest 1V portable CLINICAL HISTORY: seizure TECHNIQUE: Single frontal radiograph of the chest was obtained. Comparison: None available at the time of this dictation. FINDINGS: No lines and tubes are seen. The cardiomediastinal silhouette is normal. The lungs are clear. Incidental note is made of a density in the left perihilar region which may represent a vessel seen on end versus calcified granuloma. No evidence of pleural effusion or pneumothorax. IMPRESSION: No acute chest disease. ACT 112: Negative or not required by law. Electronically signed by: Steven Morales M.D. 02/02/2022 8:18 AM I & O Totals 24 Hours 07/10/2202/03/22 02/04/22 06:59 06:59 06:59 Intake Total 1997. / 1997.5 Output Total 1600 / 1600 Balance 398.5 / 398.5 Cumulative 02/02/22 07:10 thru 02/03/22 06:00 Intake Total 1997. Output Total 1600 Balance 398.5 RT Ventilator Mngmt (Last Documented) Ventilator Ordered Settings Respiratory Rate 16 02/03/22 06:55 Ventilator - PT Measurements Respiratory Rate 16 Coding Level of Care Code 89878 Subseq Hosp Care Lvl 2 Diagnoses Seizure R56.9 Hyponatremia E87.1 COVID-19 U07.1
[2022-02-03] MEDS ORDERED: DESMOPRESSIN ACETATE 1 MCG in SODIUM CHLORIDE 0.9% 50 ML IV ONE (09:00)
[2022-02-03] MEDS ORDERED: GADOBUTROL 30ML VIAL IV ONE (10:12)
--- NOTE | 2022-02-03 11:20 | Magnetic Resonance Report ---
MR brain wo/w con HISTORY: 56 years-old Female seizure,severe hyponatremia acute seizure like activity. COVID Positive . COMPARISON: Head CT 02/02/2022 TECHNIQUE: Multiplanar multisequence MRI of the brain was obtained both with and without the use of 5 .5 cc Gadavist FINDINGS: Computer Assembler localizer images demonstrate no gross extracranial abnormality. There is no restricted diffusio n to suggest acute or subacute infarct. Unremarkable midline structures. No acute intracranial hemorr vin, midline shift, abnormal extra-axial collection, hydrocephalus or intracranial mass. No patholog ic blooming artifact on the T2 star series. There are a few nonspecific foci of T2/FLAIR prolongation within the subcortical white matter. The medial temporal lobes are within normal limits bilaterally. No evidence of mesial temporal sclerosis, cortical dysplasia or miles matter heterotopia. The study i s mildly motion degraded. There is no abnormal enhancement. The cerebral venous sinuses and major arterial flow voids appear patent. Skull, orbits and soft tissu es are unremarkable. Mastoid air cells and paranasal sinuses are generally clear. IMPRESSION: 1. No acute intracranial abnormality. 2. Normal appearance of the mesial temporal lobes. 3. No abnormal enhancement. ACT 112: Negative or not required by law. The above report was generated using voice recognition software. It may contain grammatical, syntax o r spelling errors. Electronically signed by: Augustus Camargo M.D. 02/03/2022 11:17 AM
[2022-02-03] MEDS: ENOXAPARIN INJ 40 MG/0.4 ML SYR SQ SCH (14:38)
--- NOTE | 2022-02-03 17:58 | Hospitalist Progress Note ---
Date of Service February 03, 2022 Assessment & Plan (1) Hyponatremia: Plan: Presented with headache followed by seizure. Almost certainly this is secondary to severe hyponatremia in the setting of nausea/vomiting/diarrhea and COVID-19. Seizure lasting 10 to 12 minutes as per 's estimate and was generalized, tonic-clonic in nature. Sodium 118 on arrival with serum osmolality 247. Urine studies were not obtained until after she received 1 L of normal saline-urine osmolality 462, urine sodium 44, however the urine sodium could be affected by the normal saline she received as well as the HCTZ that she is on chronically. She has 2+ ketones in the urine She is clearly hypovolemic with her history of nausea/vomiting/diarrhea and very poor p.o. intake, making this hypotonic hypovolemic hyponatremia. There could be some part SIADH however. High anion gap metabolic acidosis likely secondary to elevated lactate from seizure, however lactate was not checked in ER -Given severe hyponatremia with resultant seizure, admit to ICU for close monitoring -Appreciate orthodontic lab technician consultation -Will check BMP again now and determine whether or not to give hypertonic saline versus isotonic after that -Most likely acute hyponatremia-aim for goal of increasing sodium 8 mmol/liter in the first 24 hours -Hold home HCTZ/losartan, and avoid NSAIDs and other medications that can cause low sodium -Treat nausea with antiemetics as needed -Follow BMP every 4 hours -Plan to get MRI of the brain with contrast on Thursday to rule out intracranial lesion-discussed with patient and MRI of the brain was negative. Sodium improved to 131 on 02/03 primo monitor. Anticipate discharge on 02/04 (2) Seizure: Plan: Most likely secondary to severe hyponatremia CT head negative Treating hyponatremia as above Check brain MRI with contrast once sodium improves-ordered for Thursday No need for EEG IV Ativan as needed No need for further Keppra (3) Nausea vomiting and diarrhea: Plan: Secondary to COVID-19 Antiemetics as needed Clear liquids diet for now (4) COVID-19: Plan: Diagnosed on 02/02. Symptoms for started on 01/31 She is twice vaccinated and boosted No evidence of hypoxia or pneumonia on chest x-ray-no indication for dexamethasone AST somewhat elevated at 64. Also with absolute lymphopenia Could give Remdesivir but will hold off given electrolyte abnormalities and dehydration Follow clinically Acetaminophen as needed for headache Place on airborne/contact isolation precautions (5) HTN (hypertension), benign: Plan: Blood pressures here are normal Hold home losartan/HCTZ due to hyponatremia Follow blood pressures Plan: DVT prophylaxis-Lovenox SQ, SCDs Disposition-admit to ICU Full code Admission and Anticipated Discharge Date Admission Date: February 02, 2022 Subjective Patient reports feeling better. Currently havning no symptoms. No diarrhea. Review of Systems Review of Systems: All systems reviewed & are unremarkable except as noted in HPI & below Physical Exam Constitutional: WD/WN, vitals as above Eyes: PERRL, conjunctivae normal, anicteric sclerae EOM intact bilaterally; no anisocoria and no nystagmus ENMT: external ear and nose normal, oropharynx normal Neck: trachea midline, no thyromegaly Respiratory: normal respiratory effort, lungs clear to auscultation Cardiovascular: RRR, no murmur, no edema Chest (Breasts): Chest: normal inspection of chest Gastrointestinal (Abdomen): normal bowel sounds, soft, nontender, no hepatosplenomegaly Musculoskeletal: Extremities: extremities normal to inspection; no cyanosis and no clubbing Skin: no rashes, warm and dry Neurologic: PERRL, EOMI, accommodation nl, no face palsy, no dysarthria CN's II-XI intact bilaterally, moves all extremities and awake; no focal motor deficits, no meningeal signs and not confused Speech / Cognition: no expressive aphasia Motor/Sensory: no sensory deficit Psychiatric: A+Ox3, euthymic affect Lymphatic: no lymphedema Results & Data Results & Data ([facility]) Vital Signs (Past 12 Hours) Vital Signs Temp Pulse Pulse Resp BP BP Pulse Ox 02/03/22 16:00 36.9 C 54 L 18 160/79 H 98 02/03/22 14:15 45 L 02/03/22 12:55 51 L 02/03/22 12:50 36.9 C 61 18 115/70 97 02/03/22 12:00 58 L 16 134/76 97 02/03/22 09:25 57 L 12 121/80 96 02/03/22 09:00 68 12 126/71 98 02/03/22 08:11 36.9 C 02/03/22 08:00 57 L 02/03/22 07:25 56 L 17 118/71 95 02/03/22 06:55 56 L 16 103/57 L 96 02/03/22 06:25 56 L 14 100/61 95 PG Care Time/CCT Total # of Minutes Spent Total Time Spent with Patient: Total time spent is greater than 50% in coordination of care (as documented) at patient's floor/unit and/or counseling patient: Coding Level of Care Code 53580 Subseq Hosp Care Lvl 2 Diagnoses Hyponatremia E87.1 Seizure R56.9 Nausea vomiting and diarrhea R11.2; R19.7 COVID-19 U07.1 HTN (hypertension), benign I10
[2022-02-03 18:11] LABS: BUN Creatinine Ratio 12.1 (10-20); Calcium 8.7 mg/dl (8.5-10.1); Creatinine Clr Calc Pharmacy 88.7 ml/min; Est GFR (African American) 119.4 ml/min; Potassium 3.7 mmol/L (3.5-5.1)
--- NOTE | 2022-02-04 05:54 | Electrocardiogram Report ---
Test Reason : Blood Pressure : / mmHG Vent. Rate : 074 BPM Atrial Rate : 074 BPM P-R Int : 194 ms QRS Dur : 090 ms QT Int : 420 ms P-R-T Axes : 063 050 055 degrees QTc Int : 466 ms Poor data quality, interpretation may be adversely affected Normal sinus rhythm Possible Left atrial enlargement Left ventricular hypertrophy with repolarization abnormality Abnormal ECG No previous ECGs available Confirmed by Kevin Smith ([id number]) on 02/04/2022 5:54:45 AM Referred By: REFERRED SELF Confirmed By:Kevin Smith
[2022-02-04 06:59] LABS: Basophils # (auto) 0.01 K/uL (0-0.2); Basophils % (auto) 0.3 %; Eosinophils # (auto) 0.01 K/uL (0-0.5); Eosinophils % (auto) 0.3 %; Hematocrit (blood only) 34.9 % (37-47); Hemoglobin 12.2 g/dL (12.0-16.0); Lymphocytes # (auto) 1.23 K/uL (1.2-3.4); Lymphocytes % (auto) 35.9 %; Mean Corpuscular Hemoglobin 30.8 pg (25-34); Mean Corpuscular Volume 88.1 fL (80-100); Mean Platelet Volume 9.4 fL (7.4-10.4); Monocytes # (auto) 0.66 K/uL (0.11-0.59); Monocytes % (auto) 19.2 %; Neutrophils # (auto) 1.52 K/uL (1.4-6.5); Neutrophils % (auto) 44.3 %; Platelet Count 203 K/uL (130-400); RDW Standard Deviation 38.9 fL (36.4-46.3); Red Blood Count 3.96 M/uL (4.2-5.4); White Blood Count 3.43 K/uL (4.8-10.8)
[2022-02-04 07:23] LABS: BUN Creatinine Ratio 7.9 (10-20); Bilirubin,Total 0.4 mg/dl (0.2-1.0); Calcium 8.8 mg/dl (8.5-10.1); Creatinine Clr Calc Pharmacy 81.7 ml/min; Est GFR (African American) 116.2 ml/min; Est GFR (Non-African American) 100.3 ml/min; Magnesium 1.8 mg/dl (1.7-2.4); Phosphorus 2.5 mg/dl (2.5-4.9); Potassium 3.5 mmol/L (3.5-5.1); Total Protein 6.7 gm/dl (6.0-8.3)
[2022-02-04 13:36] LABS: Albumin Level 4.5 gm/dl (3.4-5.0); BUN Creatinine Ratio 9.2 (10-20); Calcium 9.7 mg/dl (8.5-10.1); Creatinine Clr Calc Pharmacy 79.1 ml/min; Est GFR (Non-African American) 99.2 ml/min; Phosphorus 2.7 mg/dl (2.5-4.9); Potassium 3.6 mmol/L (3.5-5.1)
[2022-02-04] MEDS: ENOXAPARIN INJ 40 MG/0.4 ML SYR SQ SCH (13:49)
[2022-02-04] MEDS ORDERED: SODIUM CHLORIDE 1 GM TABLET PO ONE (15:14)
--- NOTE | 2022-02-04 17:02 | Nephrology Consultation ---
Date of Consultation February 04, 2022 Assessment & Plan (1) Hyponatremia: Appears relatively euvolemic on exam. Solute intake is poor. Uosm consistent with polydipsia versus autocorrection. Oral NaCl 1 gram and oral KCl 40 mEq have been provided. Repeat serum sodium ordered. If sodium is not imp roving, free water restriction will need to be enforced. Document strict I/O's. (2) HTN (hypertension), benign: BP acceptable. Continue to avoid thiazide diuretics. Remains slightly intravascularly dry. No additional treatment required. Euvolemic. (3) COVID-19: Plan of care discussed with Dr. Weaver today. I requested at least an additional 24 hours of inpatient management. History of Present Illness Reason for Consultation: Hyponatremia Requesting Physician: Jace Weaver Attending Physician: Jace Weaver History of Present Illness Olena Medina is a 56 year-old female with hypertension who was admitted to [facility] on February 02 s/p witnessed episode of tonic-clonic seizure activity. Olena had experienced approximately 24-48 hours of nausea, decreased appetite, and diarrhea prior to admission. Olena tested COVID + on admission. She denies sick contacts. Home medications included losartan-HCTZ. Serum sodium on admission was 118 mmol/L. Olena was diagnosed with tonic clonic seizure attributed to acute hyponatremia. She was found to be volume depleted on admission. Isotonic IVF provided. Serum sodium increased to 127 mmol/L following IVF replacement. Sodium was 131 mmol/L on hospital day #2. Urine osmolality on admission 462. Serum creatinine remains normal. Diarrhea persists. Olena reports that loose stools started to increase again this morning. PO intake has been reduced. She is tolerating fluids. Urine osmolality is now 79. TSH 0.7. No prior history of dysnatremia. No fluid retention or edema. Allergies Allergy/AdvReac Type Severity Reaction Status Date / Time No Known Allergies Allergy Unverified 07/27/11 06:10 Home Medications Medication Instructions Recorded Confirmed Type Multivitamins/Minerals (Centrum *) 1 tab PO DAILY #0 07/27/11 02/02/22 History losartan 50 mg-hydrochlorothiazide 1 tab PO DAILY 02/02/22 02/02/22 History 12.5 mg tablet Patient History Medical History HTN (hypertension), benign Surgical History No history of previous surgery Family History Father Diabetes Cancer Bladder CA Sister Cancer Pancreatic CA Sister Cancer Lung CA Social History Smoking Status: Never smoker Hx Alcohol Use: Yes Alcohol type: beer Alcohol Intake Frequency: 2-4 x/Month Alcohol Intake Frequency Comment: 2 beers Hx Substance Use: No Preferred Language: Ecuadorean Communication Ability: Effective Electronic Tester Required: No Beliefs That Will Affect Care: None Current Living Situation: Spouse Current Living Situation Comment: no issues with ambulation, ADLs, falls, etc. Feels Safe at Home: Yes Assistive Devices: None Review of Systems Review of Systems: All systems reviewed & are unremarkable except as noted in HPI & below Physical Exam Constitutional: well developed; no acute distress Eyes: no scleral abnormality and no corneal abnormality ENMT: Mouth: no oral mucosal abnormality and oral mucous membranes not dry Neck: normal visual inspection and trachea midline Respiratory: normal respiratory effort Auscultation: lungs clear to auscultation bilaterally Cardiovascular: Rate/Rhythm: regular rate Heart Sounds: normal S1 and normal S2 Extremities: no edema Musculoskeletal: Extremities: no cyanosis and no clubbing Skin: normal turgor; no lesions Neurologic: Motor/Sensory: no tremor and no asterixis Psychiatric: Orientation: alert and oriented x 3 Results & Data ([place]) Vital Signs (Past 12 Hours) Vital Signs Temp Pulse Pulse Resp BP Pulse Ox 02/04/22 16:26 36.7 C 80 16 150/87 H 98 02/04/22 15:08 107 H 02/04/22 11:58 36.6 C 65 18 143/82 H 97 02/04/22 07:54 36.6 C 70 16 128/77 98 02/04/22 06:42 36.8 C 69 18 135/77 95 Laboratory Results Laboratory Results - last 24 hr 02/03/22 02/04/22 02/04/22 17:27 06:31 06:31 WBC 3.43 L RBC 3.96 L Hgb 12.2 Hct 34.9 L MCV 88.1 MCH 30.8 MCHC 35.0 RDW Std Deviation 38.9 RDW Coeff of Yolande 12.0 Plt Count 203 MPV 9.4 Immature Gran % (Auto) 0.0 Neut % (Auto) 44.3 Lymph % (Auto) 35.9 [place] % (Auto) 19.2 Eos % (Auto) 0.3 Baso % (Auto) 0.3 Neut # (Auto) 1.52 Lymph # (Auto) 1.23 [place] # (Auto) 0.66 H Eos # (Auto) 0.01 Baso # (Auto) 0.01 Immature Gran # (Auto) 0.00 Sodium 124 L 125 L Potassium 3.7 3.5 Chloride 90 L 90 L Carbon Dioxide 27 28 Anion Gap 7 7 BUN 7 5 L Creatinine 0.58 L 0.63 Est Cr Clr Drug Dosing 88.7 81.7 Est GFR ( Amer) 119.4 116.2 Est GFR (Non-Af Amer) 103.0 100.3 BUN/Creatinine Ratio 12.1 7.9 L Glucose 93 94 Calcium 8.7 8.8 Phosphorus 2.5 Magnesium 1.8 Total Bilirubin 0.4 Direct Bilirubin 0.0 AST 70 H ALT 40 Alkaline Phosphatase 58 Total Protein 6.7 Albumin 4.0 Urine Osmolality Ur Random Potassium 02/04/22 02/04/22 02/04/22 11:45 11:45 12:51 WBC RBC Hgb Hct MCV MCH MCHC RDW Std Deviation RDW Coeff of Yolande Plt Count MPV Immature Gran % (Auto) Neut % (Auto) Lymph % (Auto) [place] % (Auto) Eos % (Auto) Baso % (Auto) Neut # (Auto) Lymph # (Auto) [place] # (Auto) Eos # (Auto) Baso # (Auto) Immature Gran # (Auto) Sodium 125 L Potassium 3.6 Chloride 90 L Carbon Dioxide 27 Anion Gap 8 BUN 6 Creatinine 0.65 Est Cr Clr Drug Dosing 79.1 Est GFR ( Amer) 115.0 Est GFR (Non-Af Amer) 99.2 BUN/Creatinine Ratio 9.2 L Glucose 168 H Calcium 9.7 Phosphorus 2.7 Magnesium Total Bilirubin Direct Bilirubin AST ALT Alkaline Phosphatase Total Protein Albumin 4.5 Urine Osmolality 79 L Ur Random Potassium 5.6 PG Care Time/CCT Total # of Minutes Spent Total Time Spent with Patient: Total time spent is greater than 50% in coordination of care (as documented) at patient's floor/unit and/or counseling patient: Coding Level of Care Code 41234 Inpt Consult Level 4 Diagnoses Hyponatremia E87.1 HTN (hypertension), benign I10 COVID-19 U07.1
[2022-02-04] MEDS ORDERED: POTASSIUM CHLORIDE CRTAB 20 MEQ TABCR PO STA (17:08)
--- NOTE | 2022-02-04 18:52 | Hospitalist Progress Note ---
Date of Service February 04, 2022 Assessment & Plan (1) Hyponatremia: Plan: Presented with headache followed by seizure. Almost certainly this is secondary to severe hyponatremia in the setting of nausea/vomiting/diarrhea and COVID-19. Seizure lasting 10 to 12 minutes as per 's estimate and was generalized, tonic-clonic in nature. Sodium 118 on arrival with serum osmolality 247. Urine studies were not obtained until after she received 1 L of normal saline-urine osmolality 462, urine sodium 44, however the urine sodium could be affected by the normal saline she received as well as the HCTZ that she is on chronically. She has 2+ ketones in the urine She is clearly hypovolemic with her history of nausea/vomiting/diarrhea and very poor p.o. intake, making this hypotonic hypovolemic hyponatremia. There could be some part SIADH however. High anion gap metabolic acidosis likely secondary to elevated lactate from seizure, however lactate was not checked in ER -Given severe hyponatremia with resultant seizure, admit to ICU for close monitoring -Appreciate punch press setter consultation -Will check BMP again now and determine whether or not to give hypertonic saline versus isotonic after that -Most likely acute hyponatremia-aim for goal of increasing sodium 8 mmol/liter in the first 24 hours -Hold home HCTZ/losartan, and avoid NSAIDs and other medications that can cause low sodium -Treat nausea with antiemetics as needed -Follow BMP every 4 hours -Plan to get MRI of the brain with contrast on Thursday to rule out intracranial lesion-discussed with patient and MRI of the brain was negative. Sodium improved to 131 on 02/03 will monitor. Sodium decreased to 125 but still higher than when she came in. Patient follows with [facility]. Will check her sodium level as an outpatient to assess if this was low. will repeat level in AM. patient received first dose of sodium tablets 1 gr on 02/04 (2) Seizure: Plan: Most likely secondary to severe hyponatremia CT head negative Treating hyponatremia as above Check brain MRI with contrast once sodium improves-ordered for Thursday No need for EEG IV Ativan as needed No need for further Keppra (3) Nausea vomiting and diarrhea: Plan: Secondary to COVID-19 Antiemetics as needed Clear liquids diet for now (4) COVID-19: Plan: Diagnosed on 02/02. Symptoms for started on 01/31 She is twice vaccinated and boosted No evidence of hypoxia or pneumonia on chest x-ray-no indication for dexamethasone AST somewhat elevated at 64. Also with absolute lymphopenia Could give Remdesivir but will hold off given electrolyte abnormalities and dehydration Follow clinically Acetaminophen as needed for headache Place on airborne/contact isolation precautions (5) HTN (hypertension), benign: Plan: Blood pressures here are normal Hold home losartan/HCTZ due to hyponatremia Follow blood pressures Plan: DVT prophylaxis-Lovenox SQ, SCDs Disposition-admit to ICU Full code Admission and Anticipated Discharge Date Admission Date: February 02, 2022 Subjective 56 yo female reports feeling well. She has no new complaints. Review of Systems Review of Systems: All systems reviewed & are unremarkable except as noted in HPI & below Physical Exam Constitutional: WD/WN, vitals as above Eyes: PERRL, conjunctivae normal, anicteric sclerae EOM intact bilaterally; no anisocoria and no nystagmus ENMT: external ear and nose normal, oropharynx normal Neck: trachea midline, no thyromegaly Respiratory: normal respiratory effort, lungs clear to auscultation Cardiovascular: RRR, no murmur, no edema Chest (Breasts): Chest: normal inspection of chest Gastrointestinal (Abdomen): normal bowel sounds, soft, nontender, no hepatosplenomegaly Musculoskeletal: Extremities: extremities normal to inspection; no cyanosis and no clubbing Skin: no rashes, warm and dry Neurologic: PERRL, EOMI, accommodation nl, no face palsy, no dysarthria CN's II-XI intact bilaterally, moves all extremities and awake; no focal motor deficits, no meningeal signs and not confused Speech / Cognition: no expressive aphasia Motor/Sensory: no sensory deficit Psychiatric: A+Ox3, euthymic affect Lymphatic: no lymphedema Results & Data Results & Data ([facility]) Vital Signs (Past 12 Hours) Vital Signs Temp Pulse Pulse Resp BP Pulse Ox 02/04/22 16:26 36.7 C 80 16 150/87 H 98 02/04/22 15:08 107 H 02/04/22 11:58 36.6 C 65 18 143/82 H 97 02/04/22 07:54 36.6 C 70 16 128/77 98 PG Care Time/CCT Total # of Minutes Spent Total Time Spent with Patient: Total time spent is greater than 50% in coordination of care (as documented) at patient's floor/unit and/or counseling patient: Coding Level of Care Code 06562 Subseq Hosp Care Lvl 2 Diagnoses Hyponatremia E87.1 Seizure R56.9 Nausea vomiting and diarrhea R11.2; R19.7 COVID-19 U07.1 HTN (hypertension), benign I10 Time Spent (min) 25
[2022-02-05 06:17] LABS: Hematocrit (blood only) 36.8 % (37-47); Hemoglobin 12.8 g/dL (12.0-16.0); Immature Granulocytes # (auto) 0.01 K/uL (0.00-0.02); Immature Granulocytes % (auto) 0.3 %; Lymphocytes # (auto) 0.96 K/uL (1.2-3.4); Lymphocytes % (auto) 28.7 %; Mean Corpuscular Hemoglobin 30.9 pg (25-34); Mean Corpuscular Hgb Conc 34.8 g/dL (32-36); Mean Corpuscular Volume 88.9 fL (80-100); Mean Platelet Volume 9.3 fL (7.4-10.4); Monocytes # (auto) 0.75 K/uL (0.11-0.59); Monocytes % (auto) 22.4 %; Neutrophils # (auto) 1.63 K/uL (1.4-6.5); Neutrophils % (auto) 48.6 %; Platelet Count 215 K/uL (130-400); RDW Coefficient of Variation 12.1 % (11.5-14.5); RDW Standard Deviation 39.1 fL (36.4-46.3); Red Blood Count 4.14 M/uL (4.2-5.4); White Blood Count 3.35 K/uL (4.8-10.8)
[2022-02-05 06:35] LABS: Albumin Level 4.2 gm/dl (3.4-5.0); BUN Creatinine Ratio 13.6 (10-20); Bilirubin Direct 0.1 mg/dl (0-0.2); Bilirubin,Total 0.4 mg/dl (0.2-1.0); Calcium 9.1 mg/dl (8.5-10.1); Creatinine Clr Calc Pharmacy 87.2 ml/min; Est GFR (African American) 118.8 ml/min; Est GFR (Non-African American) 102.5 ml/min; Phosphorus 3.1 mg/dl (2.5-4.9); Potassium 3.9 mmol/L (3.5-5.1)
[2022-02-05] MEDS ORDERED: SODIUM CHLORIDE 1 GM TABLET PO ONE (08:59)
[2022-02-05] MEDS ORDERED: SODIUM CHLORIDE 0.9% 1000ML 1,000 ML IV SCH (09:45)
--- NOTE | 2022-02-05 10:43 | Nephrology Progress Note ---
Date of Service February 05, 2022 Assessment & Plan (1) Hyponatremia: Plan: Euvolemic but decreased EAV. Solute intake poor. Uosm demonstrating free water clearance. Oral NaCl 1 gram provided. 1 L of IV NSS to be provided. Repeat serum sodium this afternoon. If sodium is not improving, reasonable to discharge with outpatient follow up. (2) HTN (hypertension), benign: Plan: BP acceptable. Continue to avoid thiazide diuretics. Remains slightly intravascularly dry. No additional treatment required. Euvolemic. (3) COVID-19: Plan: Plan of care discussed with Dr. Weaver today. Admission and Anticipated Discharge Date Admission Date: February 02, 2022 Subjective No acute events overnight. Plan of care reviewed with Dr. Weaver. Clinically improving serum sodium. Plan to restart IVF today. Review of Systems Review of Systems: All systems reviewed & are unremarkable except as noted in HPI & below Physical Exam Physical Exam: Deferred due to COVID Results & Data ([facility]) Vital Signs (Past 12 Hours) Vital Signs Temp Pulse Pulse Resp BP Pulse Ox 02/05/22 08:00 36.8 C 75 18 135/83 99 02/05/22 04:00 36.8 C 70 18 146/89 H 96 02/05/22 01:06 76 02/05/22 00:02 37.0 C 71 18 128/82 99 Laboratory Results Laboratory Results - last 24 hr 02/04/22 02/04/22 02/04/22 11:45 11:45 12:51 WBC RBC Hgb Hct MCV MCH MCHC RDW Std Deviation RDW Coeff of Yolande Plt Count MPV Immature Gran % (Auto) Neut % (Auto) Lymph % (Auto) [place] % (Auto) Eos % (Auto) Baso % (Auto) Neut # (Auto) Lymph # (Auto) [place] # (Auto) Eos # (Auto) Baso # (Auto) Immature Gran # (Auto) Sodium 125 L Potassium 3.6 Chloride 90 L Carbon Dioxide 27 Anion Gap 8 BUN 6 Creatinine 0.65 Est Cr Clr Drug Dosing 79.1 Est GFR ( Amer) 115.0 Est GFR (Non-Af Amer) 99.2 BUN/Creatinine Ratio 9.2 L Glucose 168 H Calcium 9.7 Phosphorus 2.7 Magnesium Total Bilirubin Direct Bilirubin AST ALT Alkaline Phosphatase Total Creatine Kinase Total Protein Albumin 4.5 Urine Osmolality 79 L Ur Random Potassium 5.6 02/05/22 02/05/22 02/05/22 05:43 05:43 05:43 WBC 3.35 L RBC 4.14 L Hgb 12.8 Hct 36.8 L MCV 88.9 MCH 30.9 MCHC 34.8 RDW Std Deviation 39.1 RDW Coeff of Yolande 12.1 Plt Count 215 MPV 9.3 Immature Gran % (Auto) 0.3 Neut % (Auto) 48.6 Lymph % (Auto) 28.7 [place] % (Auto) 22.4 Eos % (Auto) 0.0 Baso % (Auto) 0.0 Neut # (Auto) 1.63 Lymph # (Auto) 0.96 L [place] # (Auto) 0.75 H Eos # (Auto) 0.00 Baso # (Auto) 0.00 Immature Gran # (Auto) 0.01 Sodium 133 L Potassium 3.9 Chloride 99 Carbon Dioxide 25 Anion Gap 9 BUN 8 Creatinine 0.59 L Est Cr Clr Drug Dosing 87.2 Est GFR ( Amer) 118.8 Est GFR (Non-Af Amer) 102.5 BUN/Creatinine Ratio 13.6 Glucose 91 Calcium 9.1 Phosphorus 3.1 Magnesium 2.0 Total Bilirubin 0.4 Direct Bilirubin 0.1 AST 156 H ALT 58 H Alkaline Phosphatase 63 Total Creatine Kinase 31803 H Total Protein 7.0 Albumin 4.2 Urine Osmolality Ur Random Potassium PG Care Time/CCT Total # of Minutes Spent Total Time Spent with Patient: Total time spent is greater than 50% in coordination of care (as documented) at patient's floor/unit and/or counseling patient: Coding Level of Care Code 77852 Subseq Hosp Care Lvl 3 Diagnoses Hyponatremia E87.1 HTN (hypertension), benign I10 COVID-19 U07.1
[2022-02-05 12:33] LABS: Appearance Urine Clear (Clear); Bacteria Urine Automated Negative (Negative); Bilirubin Urine Negative (Negative); Blood Urine Trace (Negative); Cast Urine Automated 0 /lpf (0-5); Color Urine Yellow; Epithelial Cell Urine Auto 0-5 /lpf (0-5); Glucose Urine UA Negative (Negative); Ketones Urine 1+ (Negative); Leukocyte Esterase Urine Negative (Negative); Nitrite Urine Negative (Negative); Protein Urine Negative (Negative); RBC Urine Automated 0-4 /hpf (0-4); Specific Gravity Urine 1.005 (1.000-1.030); Urobilinogen Urine Negative (Negative)
[2022-02-05] MEDS: ENOXAPARIN INJ 40 MG/0.4 ML SYR SQ SCH (14:00)
--- NOTE | 2022-02-05 15:45 | Discharge Summary ---
Date of Service February 05, 2022 Admission HPI Per Admitting Provider This patient is a 56-year-old female with a history of HTN who presents to the ER after her witnessed her having a generalized tonic-clonic seizure that lasted about 10-12 minutes this morning. Her provides the majority of the history as patient was still a bit post-ictal when I saw her. She started having a sore throat 2 days ago, then yesterday had a headache, chills, and was vomiting all day long, nonbloody. Had a couple episodes of diarrhea as well. She was able to drink small amounts of water but nothing stayed down all day. She got up to go to the bathroom this morning and after she urinated, her reports she stood up and then fell down to the ground and had shaking movements all over that lasted 10 to 12 minutes. He called for an ambulance and when they got there the seizing had stopped. In the ER, she was found to be positive for COVID-19, had a sodium of 118, metabolic acidosis with a serum bicarbonate of 19, AG of 16, serum osmoloality of 247. Her AST was mildly elevated at 64. CBC was unremarkable except for an absolute lymphopenia. She was afebrile and vitals were normal otherwise. A head CT noncontrast was negative except for a small right scalp contusion and a chest x-ray was normal. She was given 1 L normal saline and 1000 g of IV Keppra. She is twice vaccinated and boosted for COVID-19. She will be admitted to the ICU for severe hyponatremia with seizure, and COVID- 19. Principal Diagnosis hyponatremia Discharge Exam Constitutional WD/WN, vitals as above Eyes PERRL, conjunctivae normal, anicteric sclerae EOM intact bilaterally; no anisocoria and no nystagmus ENMT external ear and nose normal, oropharynx normal Neck trachea midline, no thyromegaly Respiratory normal respiratory effort, lungs clear to auscultation Cardiovascular RRR, no murmur, no edema Chest (Breasts) Chest: normal inspection of chest Gastrointestinal (Abdomen) normal bowel sounds, soft, nontender, no hepatosplenomegaly Musculoskeletal Extremities: extremities normal to inspection; no cyanosis and no clubbing Skin no rashes, warm and dry Neurologic PERRL, EOMI, accommodation nl, no face palsy, no dysarthria CN's II-XI intact bilaterally, moves all extremities and awake; no focal motor deficits, no meningeal signs and not confused Speech / Cognition: no expressive aphasia Motor/Sensory: no sensory deficit Psychiatric A+Ox3, euthymic affect Lymphatic no lymphedema Discharge Data Allergies Allergy/AdvReac Type Severity Reaction Status Date / Time No Known Allergies Allergy Unverified 07/27/11 06:10 Consultations 02/02/22 11:54 Consult Intervention Teacher Routine 02/04/22 09:04 Consult Nephrology Routine Ordered Studies 02/02/22 07:39 CT head/brain wo con Stat 02/03/22 09:00 MR brain wo/w con Routine Hospital Course (1) Hyponatremia: Presented with headache followed by seizure. Almost certainly this is secondary to severe hyponatremia in the setting of nausea/vomiting/diarrhea and COVID-19. Seizure lasting 10 to 12 minutes as per 's estimate and was generalized, tonic-clonic in nature. Sodium 118 on arrival with serum osmolality 247. Urine studies were not obtained until after she received 1 L of normal saline- urine osmolality 462, urine sodium 44, however the urine sodium could be affected by the normal saline she received as well as the HCTZ that she is on chronically. She has 2+ ketones in the urine She is clearly hypovolemic with her history of nausea/vomiting/diarrhea and very poor p.o. intake, making this hypotonic hypovolemic hyponatremia. There could be some part SIADH however. High anion gap metabolic acidosis likely secondary to elevated lactate from seizure, however lactate was not checked in ER -Given severe hyponatremia with resultant seizure, admitted to ICU for close monitoring -Sodium slowly increased with the addition of desmopressin -Plan would be to hold HCTZ at home, however, likely diarrhea caused by COVID likely cuprit. -Appreciate can runner consultation: patient transferred out of ICU once MRI of brain was negative and Sodium improved. Urine osmolality did not indicate SIADH. Patient improved with sodium tablets, IVF fluids and decreased diarrhea. -will discharge on losartan. -Recommend followup with PCP in 1-2 weeks -recommend Nephro followup in 3-4 weeks -Patient may have had some rhabdomyolysis due to seizures/ COVID CK checked on day of discharge due to rising AST/ALT. CK: 10-12k. -Patient received 2 liters of IVF, however given normal Creatinine, anticipate levels will improve. -D/W nephro, ok to discharge with repeat blood work on Thursday. (2) Seizure: Most likely secondary to severe hyponatremia CT head negative Treating hyponatremia as above Check brain MRI with contrast once sodium improves-ordered for Thursday No need for EEG IV Ativan as needed No need for further Keppra (3) Nausea vomiting and diarrhea: Secondary to COVID-19 Antiemetics as needed resume home diet as symptoms resolved. (4) COVID-19: Diagnosed on 02/02. Symptoms for started on 01/31 She is twice vaccinated and boosted No evidence of hypoxia or pneumonia on chest x-ray-no indication for dexam ethasone AST somewhat elevated at 64. Also with absolute lymphopenia Follow clinically Acetaminophen as needed for headache Place on airborne/contact isolation precautions No treatment required (5) HTN (hypertension), benign: Blood pressures here are normal Hold home losartan/HCTZ due to hyponatremia resume losartan at discharge. DVT prophylaxis-Lovenox SQ, SCDs Total Time Total Time Spent Total Time Spent (In Minutes): 60 Discharge Plan Discharge Items Patient Disposition: Home - Self-Care Reason For Visit: SEIZURE,HYPONATREMIA Discharge Diagnosis: hyponatremia Activity: Resume your previous activity Non-emergency contact: Primary Care Provider Call non-emergency contact if: you have any medication questions Follow-up/Referrals: Olena Benson MD [Primary Care Provider] - 02/07/22 1:10 pm Diet: Regular Addtl Attending Provider Instructions: Good afternoon Olena, You were found to have a low sodium. Given your urine results, this appears that you were dehydrated and losing sodium through your stools. It appears you have been compensating well and your numbers have gradually improved. Will recommend followup with your PCP in about 1-2 weeks. Recommend rechecking your sodium in 1 week. You had a seizure but this was caused by your low sodium. You do not need to be on medications to prevent seizures. Your MRI of the brain was also normal which is very reassuring. Your CK (a special protein that indicates msucle breakdown) has been gradually rising, this is likely due to your viral illness. Will recommend rechecking your CK and sodium later in the week. The level is not dangerous, so you should not need to stay in the hospital. Nor should you have complications from this at this level. I ordered an additional fluid bolus to help wash out the toxins like myoglobin that could irritate your kidney. Recommend keeping yourself hydrated tomorrow with goal of keeping your urine clear. Please followup with Dr. Phoenix in about 3-4 weeks. It was a pleasure to take care of you. Jace Weaver Pending Studies at Discharge: No Stand-Alone Forms: My [facility], Work/School Release, Smoking Cessation Medications and DC Order Prescriptions: New losartan 50 mg tablet 50 mg PO PM Qty: 30 RF: 0 Continued Multivitamins/Minerals (Centrum *) 1 TAB tablet 1 tab PO DAILY Qty: 0 RF: 0 Discontinued losartan-hydrochlorothiazide 50-12.5 mg tablet 1 tab PO DAILY RF: 0 Discharge Orders: Discharge Order (Routine); Ordered 02/05/22 Ordered By: Jace Weaver Admission Data Admit Date/Time: 02/02/22 10:17 Attending Provider: Jace Weaver Admit Provider: Shelby De La O Primary Care Provider: Olena Benson Other Providers: Real David Fahima Other Interventions: Discharge Summary Assessment (RN) Last Done: 02/05/22 17:42 Coding Level of Care Code D/C DAY MANAGEMENT >30 MINS Diagnoses Hyponatremia E87.1 Seizure R56.9 Nausea vomiting and diarrhea R11.2; R19.7 COVID-19 U07.1 HTN (hypertension), benign I10
[2022-02-05] MEDS ORDERED: LACTATED RINGER'S 1,000 ML IV ONE (15:51)
== END 2022-02-05 19:27 | disposition home or self-care (01) | DRG 643 ==
LOC: ED 07:16 → 1E 10:00 → SUATTDRO 10:17 → 1E 10:17 → 2W 02-03 13:03
DX: A08.39 Other viral enteritis; U07.1 COVID-19; Z83.3 Family history of diabetes mellitus; G40.89 Other seizures; E22.2 Syndrome of inappropriate secretion of antidiuretic hormone; I10 Essential (primary) hypertension; E86.0 Dehydration; E87.2 Acidosis